=== PATIENT | female | born 1980 | race Caucasian/White ===

== ENCOUNTER 2021-01-11 11:42 | Emergency (ER) | payer MEDICAID ==
[~2021-01-11] VITALS: Ht 172.7 cm; Wt 59.0 kg
[2021-01-11 12:12] VITALS: BP 116/72
--- NOTE | 2021-01-11 12:42 | NUR ---
Patient discharged to home in stable condition. Written and verbal after care instructions given. Patient verbalizes understanding of instruction.
== END 2021-01-11 12:42 | disposition home or self-care (01) ==
LOC: ER 11:48
DX: L03.116 Cellulitis of left lower limb (principal); Z88.8 Allergy status to other drugs, medicaments and biological substances